=== PATIENT | female | born 1955 | race Caucasian/White ===

== ENCOUNTER 2020-03-09 09:10 | Day surgery (SDC) | payer MEDICARE, MEDICAID ==
[~2020-03-09] VITALS: Ht 160 cm; Wt 140.9 kg
[2020-03-09 09:25] VITALS: BP 146/87
[2020-03-09] MEDS ORDERED: LIDOcaine Viscous 15ml cup ONE (09:32)
[2020-03-09] MEDS ORDERED: fentaNYL/PF 50MCG/1 ML 2ML syringe ONE (09:32)
[2020-03-09] MEDS ORDERED: MIDAZolam 5mg/5ml vial ONE (09:32)
[2020-03-09] MEDS ORDERED: ALBU8.5H8 INH (09:44)
[2020-03-09] MEDS ORDERED: HYDR-3964 PO (09:44)
[2020-03-09] MEDS ORDERED: METF-436 PO (09:45)
[2020-03-09] MEDS ORDERED: LEVO200T PO (09:47)
[2020-03-09] MEDS ORDERED: CLON-513 PO (09:47)
[2020-03-09] MEDS ORDERED: ATOR40TA71 PO (09:48)
[2020-03-09] MEDS ORDERED: FENO145T26 PO (09:51)
[2020-03-09] MEDS ORDERED: CYCL-394 PO (09:52)
[2020-03-09] MEDS ORDERED: LUBI24CA5 PO (09:53)
[2020-03-09] MEDS ORDERED: VENL75CA61 PO (09:53)
[2020-03-09] MEDS ORDERED: GABA300C PO (09:54)
[2020-03-09] MEDS ORDERED: ARIP15TA8 PO (09:55)
[2020-03-09] MEDS ORDERED: CHOL500049 PO (09:56)
[2020-03-09 11:09] VITALS: BP 146/78
[2020-03-09 11:19] VITALS: BP 154/89
[2020-03-09 11:29] VITALS: BP 148/74
[2020-03-09 11:39] VITALS: BP 147/81
== END 2020-03-09 12:31 | disposition home or self-care (01) ==
LOC: GI LAB 09:10
PROVIDERS: ATTEND Internal Medicine Gastroenterology
DX: R12 Heartburn (principal); K22.8 Other specified diseases of esophagus; K22.70 Barrett's esophagus without dysplasia; K29.50 Unspecified chronic gastritis without bleeding; K21.9 Gastro-esophageal reflux disease without esophagitis
CPT/HCPCS: 43239; G0500; J2250; J3010; J7040; 99152; A4620